=== PATIENT | female | born 1995 | race Two or more races ===

== ENCOUNTER 2021-10-01 00:50 | Emergency (ER) | payer MEDICAID ==
[~2021-10-01] VITALS: Ht 175.3 cm; Wt 90.7 kg
[2021-10-01 02:06] LABS: Basophils # (auto) 0 10 ^3/uL (0-0.2); Basophils % (auto) 0.2 % (0.0-2.0); Eosinophils # (auto) 0 10 ^3/uL (0-0.8); Eosinophils % (auto) 0.2 % (0.0-7.0); Hematocrit 35.6 % (36.0-46.0); Hemoglobin 12.3 g/dL (12.2-16.2); Lymphocytes # (auto) 1.9 10 ^3/uL (0.4-5.4); Lymphocytes % (auto) 17.3 % (10.0-50.0); Mean Corpuscular Hemoglobin 29.6 pg (28.0-32.0); Mean Corpuscular Hgb Conc. 34.7 g/dL (32.0-36.0); Mean Corpuscular Volume 85.4 fL (80.0-100.0); Neutrophils # (auto) 7.8 10 ^3/uL (1.6-8.6); Neutrophils % (auto) 73.3 % (37.0-80.0); Red Blood Cells 4.17 10^6/uL (4.0-5.20); Red Cell Distribution Width 12.6 % (11.8-14.3); White Blood Cell 10.7 10^3/uL (4.4-10.8)
[2021-10-01 02:25] LABS: INR 1.08 (0.9-1.15)
[2021-10-01 02:27] LABS: Albumin 3.4 g/dL (3.4-5.0); BUN/Creatinine Ratio 13.8; Calcium 8.7 mg/dL (8.5-10.1); Potassium 3.7 mmol/L (3.5-5.1)
[2021-10-01 02:41] LABS: Urine Bacteria NONE SEEN /hpf (None Seen); Urine Blood 2+ /uL (Negative); Urine Mucus FEW (None Seen); Urine Specific Gravity 1.016 (1.001-1.035); Urine WBC 858 /hpf (0 - 5); Urine WBC Clumps PRESENT /hpf (None Seen)
[2021-10-01] MEDS ORDERED: KETOROLAC TROMETH 60MG/2ML VIAL IM ONE (02:45)
[2021-10-01] MEDS ORDERED: CEPH-509 PO (03:19)
[2021-10-01 05:50] VITALS: BP 128/71
== END 2021-10-01 05:50 | disposition home or self-care (01) ==
LOC: ER 00:50
DX: N39.0 Urinary tract infection, site not specified (principal)
CPT/HCPCS: 36415; 71045; 80053; 81001; 81025; 84484; 85025; 85610; 85730; 93005; 96372; 99285; J1885

== ENCOUNTER 2025-02-12 16:11 | Emergency (ER) | payer MEDICAID ==
[~2025-02-12] VITALS: Ht 175.3 cm; Wt 106.6 kg
[~2025-02-12 16:11] MED LIST: CEPH-509 PO
[2025-02-12 18:09] LABS: Hematocrit 40.4 % (36.0-46.0); Hemoglobin 13.9 g/dL (12.2-16.2); Mean Corpuscular Hemoglobin 28.9 pg (28.0-32.0); Mean Corpuscular Volume 83.9 fL (80.0-100.0); Nucleated Red Blood Cells % 0.1 %
[2025-02-12 18:24] LABS: Alanine Aminotransferase 20 U/L (7-40); Alkaline Phosphatase 83 U/L (46-116); Anion Gap 12 (5-15); BUN/Creatinine Ratio 15.2 (10.0-20.0); Blood Urea Nitrogen 10 mg/dL (9-23); Calcium 9.7 mg/dL (8.7-10.4); Carbon Dioxide 27 mmol/L (20-31); Chloride 102 mmol/L (98-107); Glucose 88 mg/dL (74-106); Magnesium 2.0 mg/dL (1.6-2.6); Potassium 4.1 mmol/L (3.5-5.1); Sodium 141 mmol/L (136-145); Total Protein 8.2 g/dL (5.7-8.2)
[2025-02-12 18:25] LABS: Bilirubin, Total 1.1 mg/dL (0.2-1.0)
[2025-02-12 18:30] LABS: Albumin 5.0 g/dL (3.2-4.8)
[2025-02-12] MEDS: SODIUM CHLORIDE 0.9% 1,000 ML IV ONE (20:00)
[2025-02-12] MEDS: ONDANSETRON ODT 4 MG TAB PO ONE (20:00)
[2025-02-12] MEDS ORDERED: ONDANSETRON ODT 4 MG TAB PO ONE (20:00)
--- NOTE | 2025-02-12 20:08 | ED.PDOC ---
HPI (NEURO) HPI Comments HPI: 29-year-old female presents to the ER with a chief complaint of dizziness. Patient reports that she was at work earlier today when she had an episode of dizziness associating to near syncopal episode as well as double vision, nausea and headache to the occipital portion time the right eye. After these symptoms the patient did go to the break room for which she did take [id number] meds with no relief but started to have hand tingling and mumbling. Patient notes on having had hand tingling and was mumbling two days ago as well. Denies any other symptoms at this time. Denies chills, fever, N/V/D, SOB, CP. No other associated symptoms, modifiers, recent injuries or sick contacts present at this time. States she had similar episodes at least twice in the past. Past Medical History: Denies any Past Surgical History: Social History: Denies any HPI: Poor Historian. REVIEW OF SYSTEMS: CONSTITUTIONAL: Denies acute: fever, diaphoresis, chills, generalized weakness. HEAD: Denies acute: photophobia Eyes: Denies acute: vision loss, eye pain, eye discharge. EARS: Denies acute: tinnitus, hearing loss, ear discharge, ear pain, THROAT: Denies acute: sore throat, swelling, difficulty swallowing , pain with swallowing, change in voice. NECK: Denies acute: neck pain, neck swelling, stiff neck. HEART: Denies acute : chest pain, palpitations, LUNGS: Denies acute: SOB, wheezing, cough, hemoptysis ABDOMEN: Denies acute: abdominal pain, Vomiting, diarrhea, melena , hematemesis, hematochezia SKIN: Denies acute: rash, redness, lesions, itchiness. EXTREMITIES: Denies acute: calf pain, weakness, denies pain in extremity. Denies acute: Low back pain. Neuro: Denies acute: focal neurological deficit, motor or sensory focal neurological deficit, tremors, seizure like activity, confusion, change in mental status, loss of bowel or bladder function, cauda equina like symptoms. : Denies acute: dysuria, hematuria, flank pain, increase in urinary frequency. PSYCH: Denies acute: hallucination, suicidal ideation, homicidal ideation. FEMALE: Denies acute: abnormal vaginal bleeding, foul odor, unusual discharge. PHYSICAL EXAM: General: --mild---acute distress, awake and alert. Head: normocephalic, atraumatic. No raccoon's eyes, no metzger sign. Neck: supple, trachea is midline, no swelling. Throat: Normal phonation. Eyes:, no erythema, no purulent discharge, no proptosis, no icterus. Heart: regular rate, regular rhythm, no significant murmur appreciated. Lungs: no apparent respiratory distress, Able to speak in full sentences. No wheezing, no rhonchi, no crackles. No stridors Clear to auscultation bilaterally. Abdomen: non tender to palpation, non distended, soft, no guarding, no rebound, + bowel sounds. Obese Neuro: Awake, Alert, oriented to name, self, situation, follows commands GCS=15. Speech is normal. Skin: no petechia, no purpura, no cyanosis, non-pale, not jaundice. Lower extremities: --no - Pitting edema no deformity, no focal swelling, no calf TTP. Makes eye contact. moves all four extremities. Face: no apparent facial droop. Ambulating in the ED independently. PERRLA, EOM-I CN 2-12 are grossly intact, No nystagmus. No nuchal rigidity, Kernig's sign, Brudzinski's sign, no meningeal signs. ED COURSE: DISCLAIMER: This medical document was created using an electronic medical record system with voice recognition software and computerized dictation system. Although this document has been carefully reviewed, there might still be some phonetic and typographical errors. Occasional wrong-word or "sound-alike" substitutions may have occurred due to the inherent limitations of voice recognition software. These areas are purely typographical due to imperfections of the software programs and do not reflect any compromise in the patient's medical care. Please read the chart carefully and recognize, using context, where these substitutions have occurred. Chief Complaint: Dizziness Time Seen by MD: 20:00 Reviewed Notes: Nurses Notes, Medications, Allergies Information Source: Patient Mode of Arrival: Ambulatory Was a procedure done? Was a procedure done?: No Differential Diagnosis (SZ) Seizure: N/A General Weakness: Anemia, CVA, Dehydration, Dysrhythmia, Electrolyte imbalance, Encephalopathy, Guillain-Boyd, Hypoglycemia, Hypotension, Hypovolemia, Labyr inthitis, Meniere's disease, Myasthenia gravis, Myocardial infarction, Pulmonary embolus, Renal failure, Repiratory failure, TIA, VBI, Vertigo: central, Vertigo: peripheral, Vestibular neuronitis Headache: Other (DDX include Sinusitis, migraine, meningitis, hypertension, intracranial mass/bleed, stroke, radiculopathy, vertebrobasillary insufficiency, cephalgia, pseudotumor cerebri, cerebellar ischemia/infarct, carotid stenosis, lacunar infarct, vertebral/carotid artery dissection, hydrocephalus, temporal arteritis, dura venous sinus thrombosis.) X-Ray, Labs, Meds, VS Vital Signs Date Time Temp Pulse Resp B/P (MAP) Pulse Ox O2 Delivery O2 Flow Rate FiO2 02/13/25 00:15 66 18 125/90 (102) 99 02/12/25 20:25 98.1 63 19 127/75 (92) 100 98.1 02/12/25 16:23 72 02/12/25 16:13 97.0 74 18 141/80 96 97.0 Lab Test 02/12/25 19:50 02/12/25 17:23 02/12/25 16:26 Range/Units Urine Color Light-yellow Yellow Urine Clarity Clear Clear Urine pH 7.0 5.0-9.0 Urine Specific [place] 1.011 1.001-1.035 Urine Protein Negative Negative Urine Ketones Negative Negative Urine Blood Negative Negative /uL Urine Nitrite Negative Negative Urine Bilirubin Negative Negative Urine Urobilinogen Normal Negative mg/dL Urine Leukocyte Esterase Negative Negative /uL Urine RBC 1 0 - 4 /hpf Urine Microscopic WBC 1 0-5 /HPF Urine Squamous Epithelial Cells Few <5 /hpf Urine Bacteria None seen None Seen /hpf Urine Mucus Few None Seen Urine Glucose Normal Normal mg/dL Urine Test Negative Negative White Blood Count 8.6 4.4-10.8 10^3/uL Red Blood Count 4.81 4.0-5.20 10^6/uL Hemoglobin 13.9 12.2-16.2 g/dL Hematocrit 40.4 36.0-46.0 % Mean Corpuscular Volume 83.9 80.0-100.0 fL Mean Corpuscular Hemoglobin 28.9 28.0-32.0 pg Mean Corpuscular Hemoglobin Concent 34.4 32.0-36.0 g/dL Red Cell Distribution Width 13.0 11.8-14.3 % Platelet Count 315 140-450 10^3/uL Mean Platelet Volume 7.5 6.9-10.8 fL Neutrophils (%) (Auto) 78.3 37.0-80.0 % Lymphocytes (%) (Auto) 16.4 10.0-50.0 % Monocytes (%) (Auto) 4.5 0.0-12.0 % Eosinophils (%) (Auto) 0.7 0.0-7.0 % Basophils (%) (Auto) 0.1 0.0-2.0 % Neutrophils # (Auto) 6.7 1.6-8.6 10 ^3/uL Lymphocytes # (Auto) 1.4 0.4-5.4 10 ^3/uL Monocytes # (Auto) 0.4 0-1.3 10 ^3/uL Eosinophils # (Auto) 0.1 0-0.8 10 ^3/uL Basophils # (Auto) 0 0-0.2 10 ^3/uL Nucleated Red Blood Cells 0.1 % Sodium Level 141 136-145 mmol/L Potassium Level 4.1 3.5-5.1 mmol/L Chloride Level 102 98-107 mmol/L Carbon Dioxide Level 27 20-31 mmol/L Anion Gap 12 5-15 Blood Urea Nitrogen 10 9-23 mg/dL Creatinine 0.66 0.550-1.02 mg/dL Glomerular Filtration Rate Calc 122 >90 mL/min BUN/Creatinine Ratio 15.2 10.0-20.0 Serum Glucose 88 74-106 mg/dL Lactic Acid Level 1.0 0.4-2.0 mmol/L Calcium Level 9.7 8.7-10.4 mg/dL Magnesium Level 2.0 1.6-2.6 mg/dL Total Bilirubin 1.1 H 0.2-1.0 mg/dL Aspartate Amino Transferase (AST) 10 L 13-40 U/L Alanine Aminotransferase (ALT) 20 7-40 U/L Alkaline Phosphatase 83 46-116 U/L Troponin I High Sensitivity < 3 L </=34 ng/L Total Protein 8.2 5.7-8.2 g/dL Albumin 5.0 H 3.2-4.8 g/dL POC Glucose 98 70-106 mg/dl Current Medications Medications (Trade) Dose Ordered Sig/Freddie Route Start Time Stop Time Status Last Admin Sodium Chloride 1,000 ml @ 1,000 mls/hr Q1H ONCE IV 02/12/25 20:00 02/12/25 20:59 DC 02/12/25 20:00 Ondansetron HCl (Zofran Po) 8 mg ONCE ONCE PO 02/12/25 20:00 02/12/25 20:01 DC 02/12/25 20:00 Magnesium Oxide (Mag-Ox Tablet) 800 mg ONCE ONCE PO 02/12/25 22:00 02/12/25 22:03 DC 02/12/25 22:00 Ketorolac Tromethamine (Toradol Injection) 30 mg ONCE ONCE IV 02/12/25 22:00 02/12/25 22:03 DC 02/12/25 22:00 [place] [address] Ph: [phone] DIAGNOSTIC IMAGING Diagnostic Imaging Report : [id number] Signed PATIENT: MIKE RINCON ACCT: [id number] UNIT: [id number] : 1995 LOC: ER ROOM / BED: / AGE / SEX: 29 / F ADM STATUS: REG ER SERVICE 53 ORDERING PHYSICIAN: NATE SOTO DO PROCEDURE(s): HWOCT - HEAD WITHOUT CONTRAST REASON: FISCHER, DIZZY ORDER NUMBER(s): [id number], ACCESSION NUMBER(s): [id number] Procedure: CT HEAD WITHOUT CONTRAST Study Date and Requested Time: 02/12/2025 08:39 PM History: FISCHER, DIZZY Comparison: None Dose: CTDI: 59.91 mGy DLP: 1060.65 mGycm Technique: Multiplanar images obtained through the brain without intravenous contrast. Findings: Artifact from [place]arrings limits evaluation of the cerebellum and brainstem. Otherwise, Normal brain volume and formation. Mild chronic small vessel ischemic changes. No hemorrhages, masses, mass effect, midline shift, herniation or cytotoxic edema following a large vascular territory. No intra-axial or extra-axial fluid collections. No evidence of hydrocephalus. The basal cisterns are patent. The pituitary gland, sella and parasellar regions are unremarkable. The cerebellar tonsils are in normal position. The cerebellum is unremarkable. The orbits and globes are unremarkable. Mild mucoperiosteal thickening of the ethmoid air cells. Otherwise, the paranasal sinuses and mastoids are clear. There are no worrisome calvarial lesions. Impression: Artifact from earrings limits evaluation of the cerebellum and brainstem. Otherwise, No evidence of acute intracranial abnormality. ATED BY: ELANA RODRIGUEZ DO DICTATED DATE/TIME: 02/12/252054 SIGNED BY: ELANA RODRIGUEZ DO SIGNED DATE/TIME: 02/12/252054 CC: Time of 1ST Reevaluation: 20:30 Reevaluation 1ST: Unchanged Time of 2ND Reevaluation: 23:04 (As of now none of the medications ordered happened given yet to the patient to reassess.) Patient Education/Counseling: Diagnosis, Treatment Family Education/Counseling: No Family Present Departure 1 Departure Time of Disposition: 23:03 Impression: Primary Impression: Dizziness Additional Impression: Near syncope Disposition: 01 HOME / SELF CARE / HOMELESS Condition: Stable Additional Instructions: Additional instructions: Please read all instructions provided in this packet carefully. You MUST follow-up with your primary care/family doctor in 1 to 2 days. If you are unable to see your primary care/family doctor, please return to our emergency room for re-assessment and re-evaluation in 1 to 2 days. Return to the emergency room here in our facility or to the nearest ER [facility] if your symptoms change or worsen. CONSULTATIONS: you MUST Follow-up for consultation as soon as possible with: -neurology and cardiology in 1-2 days. Please call for appointment. You MUST call the consultants office yourself to make an appointment. You may need to arrange that through your insurance and/or your primary/family doctor. If you are unable to see the recruitment consultant in 1 to 2 days, you must return to our emergency room (or any other ER of your choice) for re-assessment and re-evalu ation. Adequate fluid hydration. Although you have been discharged from the Emergency Department, this does not mean that you have a "clean bill of health". No definitive diagnosis for your symptoms has been made today. It is possible that you are in the process of developing a serious illness. This is why you must return to the ED without fail if any new or worsening symptoms develop. Below is a copy of your radiological report for follow up: [address] [address] Ph: [phone] DIAGNOSTIC IMAGING Diagnostic Imaging Report : [id number] Signed PATIENT: MIKE RINCON ACCT: [id number] UNIT: [id number] : 1995 LOC: ER ROOM / BED: / AGE / SEX: 29 / F ADM STATUS: REG ER SERVICE 53 ORDERING PHYSICIAN: NATE SOTO DO PROCEDURE(s): HWOCT - HEAD WITHOUT CONTRAST REASON: FISCHER, DIZZY ORDER NUMBER(s): [id number], ACCESSION NUMBER(s): [id number] Procedure: CT HEAD WITHOUT CONTRAST Study Date and Requested Time: 02/12/2025 08:39 PM History: FISCHER, DIZZY Comparison: None Dose: CTDI: 59.91 mGy DLP: 1060.65 mGycm Technique: Multiplanar images obtained through the brain without intravenous contrast. Findings: Artifact from Earrings limits evaluation of the cerebellum and brainstem. Otherwise, Normal brain volume and formation. Mild chronic small vessel ischemic changes. No hemorrhages, masses, mass effect, midline shift, herniation or cytotoxic edema following a large vascular territory. No intra-axial or extra-axial fluid collections. No evidence of hydrocephalus. The basal cisterns are patent. The pituitary gland, sella and parasellar regions are unremarkable. The cerebellar tonsils are in normal position. The cerebellum is unremarkable. The orbits and globes are unremarkable. Mild mucoperiosteal thickening of the ethmoid air cells. Otherwise, the paranasal sinuses and mastoids are clear. There are no worrisome calvarial lesions. Impression: Artifact from earrings limits evaluation of the cerebellum and brainstem. Otherwise, No evidence of acute intracranial abnormality. ATED BY: ELANA RODRIGUEZ DO DICTATED DATE/TIME: 02/12/252054 SIGNED BY: ELANA RODRIGUEZ DO SIGNED DATE/TIME: 02/12/252054 CC: Discharged With: Self Critical Care Note Critical Care Time?: No I personally scribed for NATE SOTO DO ([email or web address]) on 02/12/25 at 20:08. Electronically submitted by Jaspreet Mckeon ([email or web address]). NATE SOTO DO Feb 12, 2025 20:08
[2025-02-12 20:25] VITALS: TEMP 98.1
--- NOTE | 2025-02-12 20:58 | DVH ---
Procedure: CT HEAD WITHOUT CONTRAST Study Date and Requested Time: 02/12/2025 08:39 PM History: FISCHER, DIZZY Comparison: None Dose: CTDI: 59.91 mGy DLP: 1060.65 mGycm Technique: Multiplanar images obtained through the brain without intravenous contrast. Findings: Artifact from Earrings limits evaluation of the cerebellum and brainstem. Otherwise, Normal brain volume and formation. Mild chronic small vessel ischemic changes. No hemorrhages, masses, mass effect, midline shift, herniation or cytotoxic edema following a large vascular territory. No intra-axial or extra-axial fluid collections. No evidence of hydrocephalus. The basal cisterns are patent. The pituitary gland, sella and parasellar regions are unremarkable. The cerebellar tonsils are in normal position. The cerebellum is unremarkable. The orbits and globes are unremarkable. Mild mucoperiosteal thickening of the ethmoid air cells. Otherwise, the paranasal sinuses and mastoids are clear. There are no worrisome calvarial lesions. Impression: Artifact from earrings limits evaluation of the cerebellum and brainstem. Otherwise, No evidence of acute intracranial abnormality.
[2025-02-12 21:07] LABS: Urine Protein, UAD Negative (Negative)
[2025-02-12] MEDS ORDERED: KETOROLAC TROMETH 30 MG/ML 1ML VIAL IV ONE (22:00)
[2025-02-12] MEDS: KETOROLAC TROMETH 30 MG/ML 1ML VIAL IV ONE (22:00)
[2025-02-12] MEDS: MAGNESIUM OXIDE 400 MG TAB PO ONE (22:00)
[2025-02-12] MEDS ORDERED: MAGNESIUM OXIDE 400 MG TAB PO ONE (22:00)
[2025-02-13 00:15] VITALS: BP 125/90; PULSE 66; RESP 18; O2SAT 99
--- NOTE | 2025-02-17 10:42 | ECG ---
[facility] Test Date: 2025-02-12 Test Time: 16:23:47 Pat Name: MIKE RINCON Department: ED Room: Gender: F [employer]: GRACE : 1995 Requested By: NATE SOTO Order Number: [id number] Reading MD: Sony Aguiar Measurements Intervals [place] Rate: 72 P: 28 UT: 163 QRS: 50 QRSD: 92 T: 26 QT: 426 QTc: 467 Interpretive Statements Sinus rhythm Electronically Signed On 02-18-2025 17:37:13 PST by Sony Aguiar Please click the below link to view image of tracing.
== END 2025-02-13 01:07 | disposition home or self-care (01) ==
LOC: ER 16:11
DX: R55 Syncope and collapse (principal); H53.2 Diplopia; R11.0 Nausea; Z98.890 Other specified postprocedural states
CPT/HCPCS: 36415; 70450; 80053; 81001; 81025; 82947; 83605; 83735; 84484; 85025; 93005; 96361; 96374; 99285; J1885; J7030; Q0162; 82962